=== PATIENT | male | born 1930 | race Caucasian/White ===

== ENCOUNTER 2017-05-15 12:34 | Emergency (ER) | payer MEDICARE ==
--- NOTE | 2017-05-15 13:44 | RAD ---
HISTORY: Fall, right knee pain COMPARISONS: None VIEWS: 4, Frontal, lateral, axial, and oblique views of the right knee FINDINGS: BONE DENSITY: There is diffuse osteopenia. BONES: There is no displaced fracture. There are patellar enthesophytes. JOINTS: There is mild tricompartmental osteoarthritis. There is no suprapatellar joint effusion or lipohemarthrosis. ALIGNMENT: There is no dislocation. SOFT TISSUES: Unremarkable. OTHER FINDINGS: None. IMPRESSION: OSTEOPENIA. NO ACUTE OSSEOUS INJURY. IF SYMPTOMS PERSIST, RECOMMEND REPEAT IMAGING.
--- NOTE | 2017-05-15 14:15 | ED ---
Lower Extremity - HPI Summary HPI Summary: 86 male presents after sustaining and mechanical fall after tripping over his feet while visiting his who is currently a patient admitted to [facility]. Patient fell onto his knees and then hit his nose and face on the floor. Patient is Nepalese speaking however has two family members that are able to translate. Patient denies any pain. States she has no difficulty breathing, can walk and bear weight and denies headache, visual changes, chest pain, difficulty breathing and abdominal pain. Patient is taking Aspirin. Has anxiety , no other significant PMHx. Admits to a superficial abrasion at bridge of nose that was bleeding, however denies epistaxis. No complaints at this time. Did not have a syncopal episode. - History of Current Complaint Chief Complaint: EDFacialInjury Stated Complaint: FALL/FACIAL,KNEE & ARM INJURY Time Seen by Provider: 05/15/17 13:09 Hx Obtained From: Patient, Family/Heavy Equipment Engine Mechanic, Culinary Internship - family member Onset/Duration: Hours Pain Intensity: 0 Pain Scale Used: 0-10 Numeric Associated Signs And Symptoms: Positive: Redness, Bruising, Knee Pain - minimal to none Aggravating Factor(s): Nothing Able to Bear Weight: Yes - Allergies/Home Medications Allergies/Adverse Reactions: Allergies Allergy/AdvReac Type Severity Reaction Status Date / Time No Known Allergies Allergy Verified 10/16/16 08:38 PMH/Surg Hx/FS Hx/Imm Hx Endocrine/Hematology History: Denies: Hx Diabetes Cardiovascular History: Reports: Hx Angina, Hx Hypercholesterolemia, Hx Hypertension, Other Cardiovascular Problems/Disorders - heart disease Respiratory History: Denies: Hx Chronic Obstructive Pulmonary Disease (COPD) History: Reports: Hx Kidney Stones Denies: Hx Dialysis Musculoskeletal History: Denies: Hx Back Problems Neurological History: Denies: Hx Dementia, Hx Seizures - Surgical History Surgery Procedure, Year, and Place: n/a - Immunization History Immunizations Up to Date: Yes Infectious Disease History: No Infectious Disease History: Denies: Traveled Outside the [place] in Last 30 Days - Family History Known Family History: Positive: Hypertension - Social History Alcohol Use: Daily Alcohol Amount: one glass of wine Substance Use Type: Reports: None Smoking Status (MU): Former Smoker Review of Systems Constitutional: Negative Cardiovascular: Negative Respiratory: Negative Gastrointestinal: Negative Positive: Arthralgia - knee, due to bumping it Positive: Bruising - knee, Other - superficial wound to nasal bridge Neurological: Negative All Other Systems Reviewed And Are Negative: Yes Physical Exam Triage Information Reviewed: Yes Vital Signs On Initial Exam: Initial Vitals Temp Pulse Resp BP Pulse Ox 97.3 F 50 18 101/66 95 05/15/17 12:39 05/15/17 12:39 05/15/17 12:39 05/15/17 12:39 05/15/17 12:39 Vital Signs Reviewed: Yes Appearance: Positive: Well-Appearing, No Pain Distress, Well-Nourished Skin: Positive: Warm, Skin Color Reflects Adequate Perfusion, Dry, Erythema @ - right anterior knee over patella, with some ecchymosis due to blunt trauma, Other - superficial lac to nasal bridge. rest of skin exam normal without lacerations or wounds.. Negative: Cold, Numb, Cyanosis @, Diaphoretic, Pale Head/Face: Positive: Normal Head/Face Inspection - besides superficial wound noted at bridge of nasal bone, mild tenderness on palpation, Other - no hematomas, obvious deformity, crepitus or step off noted.. Negative: Scalp, Cephalohematoma Eyes: Positive: Normal, EOMI, SCOTT, Conjunctiva Clear ENT: Positive: Normal ENT inspection, Hearing grossly normal, Pharynx normal, TMs normal. Negative: Nasal congestion, Tonsillar swelling, Tonsillar exudate, Trismus, Muffled/hoarse voice Dental: Negative: Dental Fracture @ Neck: Positive: Supple, Nontender, No Lymphadenopathy Respiratory/Lung Sounds: Positive: Clear to Auscultation, Breath Sounds Present. Negative: Rales, Rhonchi, Wheezes Cardiovascular: Positive: Normal, RRR, Pulses are Symmetrical in both Upper and Lower Extremities - 2+ all. Negative: Murmur, Rub Abdomen Description: Positive: Nontender, Soft. Negative: Distended, Guarding Bowel Sounds: Positive: Present Musculoskeletal: Positive: Normal, Strength/ROM Intact. Negative: Limited @, Interruption @, Pain @, Edema Left, Edema Right Neurological: Positive: Normal - normal neuro exam, Sensory/Motor Intact, Alert , Oriented to Person Place, Time, CN Intact II-III, Reflexes Intact, NV Bundle Intact Distally, Normal Gait, Finger to Nose - normal, Facial Symmetry, Speech Normal Psychiatric: Positive: Normal, Affect/Mood Appropriate AVPU Assessment: Alert - Chucho Coma Scale Best Eye Response: 4 - Spontaneous Best Motor Response: 6 - Obeys Commands Best Verbal Response: 5 - Oriented Diagnostics - Vital Signs Vital Signs Temp Pulse Resp BP Pulse Ox 05/15/17 13:09 97.3 F 50 18 101/66 95 05/15/17 12:39 97.3 F 50 18 101/66 95 - Laboratory Lab Statement: Any lab studies that have been ordered have been reviewed, and results considered in the medical decision making process. - Radiology right knee Xray Interpretation: No Acute Changes - OSTEOPENIA. NO ACUTE OSSEOUS INJURY. IF SYMPTOMS PERSIST, RECOMMEND REPEAT IMAGING. Radiology Interpretation Completed By: Radiologist - CT maxillofacial CT Interpretation: Positive (See Comments) - Comminuted fracture of both the left and right nasal arch CT Interpretation Completed By: Radiologist Re-Evaluation - Re-Evaluation First Eval Re-Evaluation Time: 17:00 Change: Improved Lower Extremity Course/Dx - Course Course Of Treatment: X-ray of right knee and CT maxillofacial obtained. Knee x- ray negative. CT showed fracture to nasal bridge. Dr Conklin also evaluated patient. Spoke with Dr Arrington who stated to have him follow up in 5 days and no antibiotics are needed at this time, as discussed possibilty of open fracture due to superficial skin avulsion over nasal bridge. Wound was dressed with gauze as glue/closure was not necessary. NSAID and ice. Aware of worsening signs and symptoms. Rest of PE findings normal. No concern for neurologic deficit or head trauma at this time. Follow up PCP and ENT. - Diagnoses Differential Diagnosis/HQI/PQRI: Positive: Contusion, Dislocation, Fracture ( Closed), Fracture (Open), Sprain Provider Diagnoses: Nasal bone fracture - Physician Notifications Discussed Care Of Patient With: Dr Arrington Time Discussed With Above Provider: 16:00 Instructed by Provider To: Have Pt Call For Appt. Discharge - Discharge Plan Condition: Stable Disposition: HOME Patient Education Materials: Nasal Fracture (ED) Referrals: [facility] PHYSICIAN REFERRAL [Outside] Sekou Arrington MD [Medical Doctor] - Additional Instructions: Please follow up with Dr Arrington's office in 5 days. Apply ice to nose for swelling and pain. Keep wound clean and dry. Apply triple antibiotic ointment as desired. Return if you have difficulty breathing or new symptoms develop.
--- NOTE | 2017-05-15 15:27 | RAD ---
Indication: Facial injury. CT of the facial bones was obtained in the axial plane. Sagittal and coronal reconstructed images were obtained. The mandible demonstrates no fracture. The maxilla is intact. No fracture is noted. Comminuted fracture of the nasal arch is noted. This is on both the left and right nasal arch. Paranasal sinuses demonstrates mucosal thickening of the ethmoid air cells. The orbits demonstrates no fracture. Maxilla and zygomatic arch are unremarkable. Mastoid air cells are unremarkable. The C1 ring is intact. IMPRESSION: Comminuted fracture of both the left and right nasal arch.
--- NOTE | 2017-05-15 16:05 | PN ---
Diana Galvez SooYoung, scribed for Sun Conklin MD on 05/15/17 at 1603 . Progress Note - Progress Note Date of Service: 05/15/17 Note: A 54 y/o M presents to ED after a mechanical fall. Pt seen by GOMEZ Rabago. Pt has a comminuted nasal fracture with superficial lac at nasal bridge. Bleeding is controlled. No septal hematoma. Pt states feeling OK, is not in pain. No PMHx: DM, denies blood thinners, is on aspirin. Consulting ENT, Dr. Thompson. 1600. Consult with Dr. Thompson, ENT. (Sekou Moore.) ENT. Definite f/u in 5 days. No ABX. The documentation as recorded by the scribeDiana SooYoung accurately reflects the service I personally performed and the decisions made by , Sun Conklin MD.
[2017-05-15 16:26] VITALS: BP 125/67
== END 2017-05-15 16:24 | disposition home or self-care (01) ==
LOC: ED 12:34
DX: S02.2XXA Fracture of nasal bones, initial encounter for closed fracture (principal); W19.XXXA Unspecified fall, initial encounter; Y93.89 Activity, other specified; Y92.238 Other place in hospital as the place of occurrence of the external cause; M25.569 Pain in unspecified knee; Z87.891 Personal history of nicotine dependence
CPT/HCPCS: 70486; 99282

== ENCOUNTER 2018-03-16 17:01 | Emergency (ER) | payer MEDICARE ==
[2018-03-16] MEDS ORDERED: Indomethacin CAP* 25 MG CAP PO ONE (19:50)
--- NOTE | 2018-03-16 20:15 | RAD ---
INDICATION: Left wrist pain after a fall COMPARISON: None. TECHNIQUE: 3 views left wrist. REPORT: The visualized bones are properly aligned and well corticated. There is sclerotic narrowing of the left thumb metacarpal trapezium joint.There is no fracture, dislocation or other focal osseous abnormality. IMPRESSION: Degenerative changes of the left wrist without radiographically apparent fracture or dislocation. If the patient's symptoms persist, follow-up imaging is recommended.
--- NOTE | 2018-03-16 20:46 | ED ---
Emelia Galvez Rebecca, scribed for Brooks Macias MD on 03/16/18 at 1948 . Upper Extremity Pain - HPI Summary HPI Summary: Pt is an 87 y/o M who presents to ED c/o L wrist pain. Sx began suddenly earlier today, about 2-3 hours after falling out of a swinging chair. The pt fell at 1057 this morning. Confirms he did not have the pain yesterday. Sx aggravated by movement, alleviated by nothing. Additionally noted palpitations characterized as irregular. PMHx gout. History obtained from a grain origination specialist on the phone and his son. - History of Current Complaint Chief Complaint: EDChestPainROMI Stated Complaint: LT ARM PAIN Time Seen by Provider: 03/16/18 19:33 Hx Obtained From: Family/Heating Systems Installer - Son, Key Account Coordinator Mechanism Of Injury: Fall From Height Of: - Swinging chair Onset/Duration: Started Hours Ago - Started this morning, Still Present Pain Location: Wrist - Left Aggravating Factor(s): Movement Alleviating Factor(s): Nothing Associated Signs & Symptoms: Positive: Other - Palpitations - Allergies/Home Medications Allergies/Adverse Reactions: Allergies Allergy/AdvReac Type Severity Reaction Status Date / Time No Known Allergies Allergy Verified 10/16/16 08:38 PMH/Surg Hx/FS Hx/Imm Hx Endocrine/Hematology History: Denies: Hx Diabetes Cardiovascular History: Reports: Hx Angina, Hx Hypercholesterolemia, Hx Hypertension, Other Cardiovascular Problems/Disorders - heart disease Respiratory History: Denies: Hx Chronic Obstructive Pulmonary Disease (COPD) History: Reports: Hx Kidney Stones Denies: Hx Dialysis Musculoskeletal History: Reports: Hx Gout Denies: Hx Back Problems Neurological History: Denies: Hx Dementia, Hx Seizures - Surgical History Surgery Procedure, Year, and Place: n/a Infectious Disease History: No Infectious Disease History: Denies: Traveled Outside the [place] in Last 30 Days - Family History Known Family History: Positive: Hypertension - Social History Alcohol Use: Daily Alcohol Amount: one glass of wine Substance Use Type: Reports: None Smoking Status (MU): Former Smoker Review of Systems Positive: Palpitations Positive: Arthralgia - L wrist pain All Other Systems Reviewed And Are Negative: Yes Physical Exam - Summary Physical Exam Summary: VITAL SIGNS: Reviewed. GENERAL: ~Patient is a well-developed and nourished male who is lying comfortable in the stretcher. Patient is not in any acute respiratory distress. HEAD AND FACE: No signs of trauma. No ecchymosis, hematomas or skull depressions. No sinus tenderness. EYES: PERRLA, EOMI x 2, No injected conjunctiva, no nystagmus. EARS: Hearing grossly intact. Ear canals and tympanic membranes are within normal limits. MOUTH: Oropharynx within normal limits. NECK: Supple, trachea is midline, no adenopathy, no JVD, no carotid bruit, no c- spine tenderness, neck with full ROM. CHEST: Symmetric, no tenderness at palpation LUNGS: Clear to auscultation bilaterally. No wheezing or crackles. CVS: Regular rate and rhythm, S1 and S2 present, no murmurs or gallops appreciated. EXTREMITIES: No edema, no cyanosis or clubbing. Tenderness, swelling and decreased ROM over the left wrist. NEURO: Alert and oriented x 3. No acute neurological deficits. Speech is normal and follows commands. SKIN: Dry and warm Triage Information Reviewed: Yes Vital Signs On Initial Exam: Initial Vitals Temp Pulse Resp BP Pulse Ox 99.1 F 74 16 110/77 100 03/16/18 17:02 03/16/18 17:02 03/16/18 17:02 03/16/18 17:02 03/16/18 17:02 Vital Signs Reviewed: Yes Diagnostics - Vital Signs Vital Signs Temp Pulse Resp BP Pulse Ox 03/16/18 17:02 99.1 F 74 16 110/77 100 - Laboratory Lab Statement: Any lab studies that have been ordered have been reviewed, and results considered in the medical decision making process. - Radiology Wrist XR Xray Interpretation: No Acute Changes - Degenerative changes of the left wrist without radiographically apparent fracture or dislocation. If the patient's symptoms persist, follow-up imaging is recommended. ED physician reviewed this radiology report. Radiology Interpretation Completed By: Radiologist - EKG 2004 Cardiac Rate: Bradycardia - 56 bpm EKG Rhythm: Sinus Bradycardia EKG Interpretation: RBBB. Normal axis. Course/Dx - Course Assessment/Plan: Pt is an 87 y/o M who presents to ED c/o acute onset L wrist pain, beginning about 2-3 hours after falling out of a swinging chair at 1057 this morning. Sx aggravated by movement. Additionally noted palpitations characterized as irregular. PMHx gout. History obtained from a grain origination specialist on the phone and his son. Wrist XR reveals no acute findings. EKG is sinus rhythm with RBBB. Pt's signs and symptoms most likely acute gouty arthritis, given the severity of pain and the acute onset. Pt will be D/C to home with Dx of gouty arthritis, on indocin for 5 days with a follow up with his PCP. - Diagnoses Provider Diagnoses: Gouty arthritis Discharge - Sign-Out/Discharge Documenting (check all that apply): Discharge/Admit/Transfer - Discharge - Discharge Plan Condition: Stable Disposition: HOME Patient Education Materials: Gout (ED) Referrals: [facility] PHYSICIAN REFERRAL [Outside] - 3 Days Additional Instructions: RETURN TO EMERGENCY DEPARTMENT FOR ANY NEW OR WORSENING SYMPTOMS. The documentation as recorded by the Emelia christian Rebecca accurately reflects the service I personally performed and the decisions made by , Brooks Macias MD.
[2018-03-16 21:14] VITALS: BP 135/93
== END 2018-03-16 21:12 | disposition home or self-care (01) ==
LOC: ED 17:01
DX: M10.9 Gout, unspecified (principal); R00.2 Palpitations; M19.032 Primary osteoarthritis, left wrist; Z91.81 History of falling; Z87.891 Personal history of nicotine dependence
CPT/HCPCS: 93005; 99282; A9270-GY